=== PATIENT | male | born 1990 | race Two or more races ===

== ENCOUNTER 2024-11-06 01:11 | Emergency (ER) | payer MEDICAID, SELFPAY ==
[2024-11-06 01:16] VITALS: BMI 26.1
[2024-11-06 01:26] VITALS: BP 138/94; PULSE 98; TEMP 37.1; O2SAT 96
[2024-11-06] MEDS: SODIUM CHLORIDE 0.9% 1000 ML 1,000 ML 999 ML IV (01:59)
[2024-11-06] MEDS: CLINDAMYCIN/NS 600 MG IVPB 600 MG/50 ML BAG 100 MG IV (02:00)
[2024-11-06 02:10] LABS: Basophils # (Auto) 0.1 Thou/mm3 (0.0-0.2); Basophils % (Auto) 1 % (0-2.5); Eosinophils # (Auto) 0.2 Thou/mm3 (0.0-0.5); Eosinophils % (Auto) 1 % (0-10); Hemoglobin 13.3 g/dL (13.5-16.0); Immature Granulocytes % (Auto) 3 % (0-0); Immature Granulocytes Auto 0.32 Thou/mm3 (0.00-0.00); Lymphocytes # (Auto) 2.6 Thou/mm3 (1.0-4.8); Lymphocytes % (Auto) 24 % (10-50); Mean Corpuscular HGB Conc 34.1 g/dl (31.0-37.0); Mean Corpuscular Hemoglobin 26.5 pg (25.0-35.0); Mean Corpuscular Volume 78 fL (80-100); Monocytes # (Auto) 1.1 Thou/mm3 (0.0-0.8); Monocytes % (Auto) 10 % (0-12); Neutrophils # (Auto) 6.8 Thou/mm3 (1.8-7.7); Neutrophils % (Auto) 62 % (37-80); Nucleated Red Blood Cell # 0.02 Thou/mm3 (0.00-0.00); Nucleated Red Blood Cell % 0 /100 WBC (0); Platelet Count 392 Thou/mm3 (140-440); RDW Standard Deviation 42.2 fL (35.1-43.9); Red Blood Count 5.01 Miln/mm3 (4.50-5.90); White Blood Count 11.1 Thou/mm3 (3.8-10.6)
[2024-11-06 02:20] LABS: Collection Type, Urine Clean Catch; Squamous Epithelial Cell,Urine 0 /hpf (0-5)
[2024-11-06 02:21] LABS: Alanine Aminotransferase 78 U/L (10-49); Albumin, Serum 4.3 gm/dL (3.5-5.0); Albumin/Globulin Ratio 1.9 (1.2-2.2); Alcohol, Blood Medical < 3.0 mg/dL (0-10.0); Alkaline Phosphatase 93 U/L (46-116); Anion Gap 10 (7-16); Aspartate Amino Transferase 95 U/L (0-34); BUN/Creatinine Ratio 8 Ratio (12-20); Bilirubin,Total 0.3 mg/dL (0.3-1.2); Blood Urea Nitrogen 6 mg/dL (9-23); Calcium 9.7 mg/dL (8.3-10.6); Calcium (Corrected) 9.7 mg/dL (8.5-10.1); Carbon Dioxide 27.5 mMol/L (20.0-31.0); Chloride 104 mMol/L (98-107); Creatinine (Component) 0.8 mg/dL (0.6-1.3); Estimated Creatinine Clearance 91.9 mL/min (>60); Globulin 2.3 gm/dL (2.3-3.5); Glucose 83 mg/dL (74-106); Osmolality,Calculated 277 (275-295); Potassium 3.8 mMol/L (3.4-5.1); Sed Rate (ESR) 14 mm/hr (0-15); Sodium 141 mMol/L (136-145); Total Protein 6.6 gm/dL (5.7-8.2); eGFR > 60 See Note
[2024-11-06 02:27] LABS: Bilirubin,Urine Negative (Negative); Blood,Urine Negative (Negative); Clarity,Urine Clear (Clear/Hazy); Color,Urine Lt-Yellow (Lt Yel-Yel); Culture Indicated,Urine Not Indicated; Glucose, Urine Negative (Negative); Ketones,Urine Negative (Negative); Leukocyte Esterase,Urine Negative (Negative); Nitrite,Urine Negative (Negative); Protein,Urine Negative (Neg - Trace); RBC,Urine < 1 /hpf (0-3); Urobilinogen,Urine Negative mg/dL (0.0-1.0); WBC,Urine 1 /hpf (0-5)
[2024-11-06 02:34] LABS: Amphetamine/Methamp Scrn,U Negative (Negative); Barbiturate Screen,Urine Negative (Negative); Benzodiazepines Screen,Urine Negative (Negative); Benzoylecgonine Screen, Ur Negative (Negative); Fentanyl Screen,Urine Negative (Negative); Opiate Screen,Urine Negative (Negative); THC Screen,Urine Negative (Negative)
[2024-11-06 02:38] LABS: Syphilis Nonreactive (Nonreactive)
[2024-11-06] MEDS: LEVOFLOXACIN/D5W 750MG IVPB 750 MG/150 ML BAG 100 MG IV (02:47)
--- NOTE | 2024-11-06 02:49 | PD.EDSKIN ---
ED Skin Abcess FB-RME/HPI General Chief complaint: Fall Stated complaint: FALL HIT HEAD A WEEKS AGO, BLE SWELLING X4 DAYS Time Seen by Provider: 11/06/24 01:22 Arrival date/time: 11/06/24 01:11 34M with history of homelessness and dwarfism presents to ED with generalized skin pain, worst in RLE, after patient was lying out in the sun too long several days ago. Patient also states he swam in the [place], after he was sunburnt. Patient had a tetanus shot in the past 5 years. Limitations: no limitations Related Data Previous Rx's ?Medication ?Instructions ?Recorded clindamycin HCl 300 mg capsule 600 mg (2 x 300 mg) PO BID 7 days 11/06/24 #28 caps levofloxacin 750 mg tablet 750 mg PO QDAY 7 days #7 tabs 11/06/24 mupirocin 2 % topical ointment 1 applic topical BID #22 grams 11/06/24 Allergies Allergy/AdvReac Type Severity Reaction Status Date / Time cephalexin Allergy Diarrhea Verified 11/06/24 01:15 Review of Systems Review of Systems Systems Reviewed: All systems reviewed, normal except as documented Constitutional Constitutional: Reports system reviewed and no additional complaints, except as documented, Denies fever(s) and Denies headache(s) ENT Ears, Nose, Mouth, and Throat: Denies disequilibrium and Denies headache(s) Cardiovascular Cardiovascular: Reports system reviewed and no additional complaints, except as documented, Denies chest pain and Denies dyspnea Respiratory Respiratory: Reports system reviewed and no additional complaints, except as documented, Denies cough and Denies dyspnea Gastrointestinal Gastrointestinal: Reports system reviewed and no additional complaints, except as documented, Denies abdominal pain, Denies nausea and Denies vomiting Integumentary/Breasts Skin/Breast: Reports as per HPI, Reports rash and Reports skin pain Neurologic Neurologic: Reports system reviewed and no additional complaints, except as documented, Denies confusion, Denies disequilibrium and Denies headache(s) Psychiatric Psychiatric: Denies confusion Past Medical History Social History SMOKING STATUS: Never smoker ED Exam General Limitations: Present no limitations General appearance: Present alert and in no apparent distress Head Head exam: Present atraumatic Eye Eye exam: Present normal appearance, PERRL and EOMI ENT ENT exam: Present normal exam, normal oropharynx and mucous membranes moist Neck Neck exam: Present normal inspection, full ROM and trachea midline Chest Chest inspection: Present normal inspection and symmetric chest wall rise Respiratory Respiratory exam: Present normal lung sounds bilaterally Cardiovascular Cardiovascular exam: Present regular rate, normal rhythm and normal heart sounds Abdominal Exam Abdominal exam: Present soft and normal bowel sounds Extremities Exam Extremities exam: Present normal inspection and full ROM Back Exam Back exam: Present normal inspection and full ROM Neurological Exam Neurological exam: Present alert, oriented X3 and CN II-XII intact Psychiatric Psychiatric exam: Present normal affect and normal mood Skin Skin exam: Present warm, dry, intact, normal color and rash (sunburn) Course Quality Measures none Orders Category Date Time Status Wound Care NOW Care 11/06/24 01:42 Active Alcohol, Blood Medical Stat Lab 11/06/24 01:50 Completed CBC Stat Lab 11/06/24 01:50 Completed CMP [Comprehensive Metabolic Panel] Stat Lab 11/06/24 01:50 Completed CRP [C-Reactive Protein] Stat Lab 11/06/24 01:50 Completed Drug Screen,Urine Stat Lab 11/06/24 02:10 Completed ESR [Sed Rate (ESR)] Stat Lab 11/06/24 01:50 Completed Syphilis Stat Lab 11/06/24 01:50 Completed Urinalysis, C/S if Indicated Stat Lab 11/06/24 02:10 Completed Clindamycin/Ns 600 mg Ivpb [Cleocin/Ns Ivpb] Med 11/06/24 01:41 Discontinued 600 mg in 50 ml IV X1 Levofloxacin/D5w 750Mg Ivpb [Levaquin Ivpb] Med 11/06/24 01:40 Active 750 mg in 150 ml IV X1 Sodium Chloride 0.9% 1000 ml [Ns] 1,000 ml Med 11/06/24 01:40 Discontinued IV 999 mls/hr Vital Signs Vital signs: Vital Signs Temperature 98.7 F 11/06/24 01:26 Pulse Rate 98 11/06/24 01:26 Blood Pressure 138/94 H 11/06/24 01:26 Pulse Oximetry (%) 96 11/06/24 01:26 Oxygen Delivery Method Room Air 11/06/24 01:26 O2 at 96% on RA and WNLs Skin / Abscess / Foreign Body MDM Narrative MDM Narrative:: 34M with history of homelessness and dwarfism presents to ED with generalized skin pain, worst in RLE, after patient was lying out in the sun too long several days ago. Patient also states he swam in the [place], after he was sunburnt. Patient had a tetanus shot in the past 5 years. Physical exam reveal generalized skin redness in various stages of healing/peeling. Worst in on RLE where there is also increased tenderness and swelling. Patient is afebrile, calm, and alert. Gait normal. Speech normal. Minimal leukocytosis. CMP unremarkable. ESR/CRP normal. Tox/alcohol screen neg. Syphilis neg. Wound cleaned/irrigated and bandaged. ABX given to cover for water exposure including Aeromonas. Patient data External records reviewed:: [facility] previous records Clinical information provided by:: patient Social determinants that could affect healthcare access:: none Patient has the following chronic illnesses:: none How is presenting disease/condition affected by chronic disease/condition?: no chronic disease Evaluation data The following diagnostics were reviewed and interpreted by me:: lab results Lab and/or radiology exams considered but not ordered:: ordered Interpretation Summary: above Medications / Prescriptions Medications or Prescriptions considered but not ordered:: ordered Medication administrations:: Medication Administration History Levofloxacin/Dextrose (Levaquin Ivpb) 750 mg in 150 mls @ 100 mls/hr IV X1 ONE Stop: 11/06/24 03:09 Last Admin: 11/06/24 02:47 Dose: 100 mls/hr Documented By: Discontinued Medications Sodium Chloride (Ns) 1,000 mls @ 999 mls/hr IV .Q1H1M ONE Stop: 11/06/24 02:40 Last Admin: 11/06/24 01:59 Dose: 999 mls/hr Documented By: KAYODE Clindamycin/Sodium Chloride (Cleocin/Ns Ivpb) 600 mg in 50 mls @ 100 mls/hr IV X1 ONE Stop: 11/06/24 02:10 Last Infusion: 11/06/24 02:30 Dose: Infused Documented By: Admin: 11/06/24 02:00 Dose: 100 mls/hr Documented By: KAYODE above Consultations Consultation(s) initiated? (list below): No Diagnosis Skin/Abscess Differential Diagnosis: abscess of skin or subcutaneous tissue, viral exanthem, dermatophytosis, urticaria, herpes zoster, allergic reaction to drug, cellulitis, eczema, insect bites, impetigo and contact dermatitis Most likely diagnosis given after review of the tests above:: sunburn and cellulitis Admission Indicated Admission indicated?: not indicated Admission Request Was there a request for admission?: No Disposition Plan Disposition Plan: Discharge Discharge Attestation Discharge Attestation: The patient and all family members were given an opportunity to ask questions and understood the discharge instructions. Discharge instructions specifically effects, indications for sooner follow up or return to the emergency department, and the expected course of current diagnosis. Patient condition: Stable Discharge Plan Plan Patient Disposition: HOME (Self Care) Discharge Disposition comment: Stable Prescriptions/Referrals Prescriptions/Med Rec: New mupirocin 2 % ointment 1 applic topical BID Qty: 22 0RF levofloxacin 750 mg tablet 750 mg PO QDAY 7 Days Qty: 7 0RF clindamycin HCl 300 mg capsule 600 mg PO BID 7 Days Qty: 28 0RF Problem List Clinical Impression: Sunburn, Cellulitis Patient/Caregiver Discharge Instructions Education Materials: ED Cellulitis, ED Sunburn Additional Instructions: Please follow-up with PCP within 24-48 hours and return immediately if symptoms worsen. Keep open wounds covered with ointment until healed. Print Language: Kazakh Stand Alone Forms: Patient Portal Info Letter NAVDEEP/TIMO Supervising Physician FABIANO Supervising Physician: Dr. Cheema
== END 2024-11-06 04:12 | disposition home or self-care (01) ==
LOC: SERX 03:05
PROVIDERS: Physician Assistant; Emergency Provider Emergency Medicine
DX: L55.9 Sunburn, unspecified (principal); L03.90 Cellulitis, unspecified; Z59.00 Homelessness unspecified
CPT/HCPCS: 36415; 80053; 80307; 80320; 81001; 85025; 85652; 86140; 86780; 96365; 96367; 99284; J1956; J7030; S0077; G0480; J0737